=== PATIENT | female | born 1965 | race Caucasian/White ===

== ENCOUNTER 2016-06-12 10:50 | Day surgery (SDC) | payer MEDICAID, OTHER ==
[2016-06-11 11:57] VITALS: BMI 22.7
[~2016-06-12] VITALS: Ht 162.6 cm; Wt 75.0 kg
[2016-06-12] VITALS (9 sets, daily range): BP systolic 102–128; BP diastolic 63–71; PULSE 64–100; RESP 12–18; Ht 162.6 cm; Wt 75.0 kg
[~2016-06-12 10:50] MED LIST: CEFAZOLIN 1 GM INJ ONE; CEFAZOLIN 1 GM/50 ML (PMX) 50 ML IVPB SCH; LACTATED RINGER'S 1,000 ML IV SCH
[2016-06-12] MEDS ORDERED: FENTAnyl 50 MCG/ML VIAL ONE ×2 (10:55→13:23)
[2016-06-12] MEDS ORDERED: GLYCOPYRROLATE 0.4 MG INJ ONE (10:55)
[2016-06-12] MEDS ORDERED: LIDOCAINE 2% (SDV) 5 ML INJ ONE ×2 (10:55→13:22)
[2016-06-12] MEDS ORDERED: PROPOFOL 20 ML ONE ×2 (10:55→13:22)
[2016-06-12] MEDS ORDERED: ROCURONIUM 50 MG INJ ONE (10:55)
[2016-06-12] MEDS ORDERED: NEOSTIGMINE 3 MG/3 ML SYRINGE ONE (10:55)
[2016-06-12] MEDS ORDERED: MIDAZOLAM 1 MG/ML 2 ML INJ ONE ×2 (10:55→13:22)
[2016-06-12] MEDS ORDERED: DEXAMETHASONE 4 MG/ML 1 ML INJ ONE ×3 (10:55→13:54)
[2016-06-12] MEDS ORDERED: ONDANSETRON 4 MG INJ ONE ×2 (10:56→13:54)
[2016-06-12] MEDS ORDERED: SUCCINYLCHOLINE CHLORIDE 100 MG/5 ML SYG IV ONE (10:56)
[2016-06-12] MEDS ORDERED: CEFAZOLIN 1 GM INJ ONE ×2 (10:57→13:34)
[2016-06-12] MEDS ORDERED: MIDAZOLAM 1 MG/ML 2 ML INJ IV PRN (11:00)
[2016-06-12] MEDS ORDERED: MEPERIDINE 25 MG INJ IV PRN ×2 (11:00→14:00)
[2016-06-12] MEDS ORDERED: morphine (1 MG/ML) 10ML SYRINGE IV PRN ×3 (11:00)
[2016-06-12] MEDS ORDERED: LABETALOL HCL 20MG INJ IV PRN (11:00)
[2016-06-12] MEDS ORDERED: DIPHENHYDRAMINE 50 MG INJ IV PRN ×2 (11:00→14:00)
[2016-06-12] MEDS ORDERED: FENTAnyl 50 MCG/ML VIAL IV PRN ×3 (11:00→14:00)
[2016-06-12] MEDS ORDERED: ATROPINE 1 MG/10 ML SYRINGE IV PRN (11:00)
[2016-06-12] MEDS ORDERED: ONDANSETRON 4 MG INJ IV PRN ×2 (11:00→14:00)
[2016-06-12] MEDS ORDERED: HYDROmorphONE (0.2 MG/ML) 10ML SYG IV PRN ×4 (11:00→14:00)
[2016-06-12] MEDS ORDERED: CEFAZOLIN 1 GM/50 ML (PMX) 50 ML IVPB SCH (11:00)
[2016-06-12] MEDS ORDERED: OXYCODONE/ACETAMINOPHEN (5/325) TAB PO PRN ×3 (11:00→14:00)
[2016-06-12] MEDS ORDERED: hydrALAzine 20 MG INJ IV PRN (11:00)
[2016-06-12] MEDS ORDERED: LACTATED RINGER'S 1,000 ML IV SCH (11:00)
[2016-06-12] MEDS ORDERED: EPHEDrine SULFATE 50 MG/5 ML SYG IV PRN (11:00)
[2016-06-12] MEDS ORDERED: LEVO100T87 PO (11:49)
[2016-06-12 12:12] LABS: BASOPHILS % 0.7 % (0.0-2.0); EOSINOPHILS # 0.2 10^3/ul (0.0-0.5); EOSINOPHILS % 4.5 % (0.0-7.0); HEMATOCRIT 39.5 % (37.0-47.0); HEMOGLOBIN 13.3 g/dl (12.0-16.0); LYMPHOCYTES # 1.7 10^3/ul (0.8-2.9); LYMPHOCYTES % 35.1 % (15.0-51.0); MEAN CORPUSCULAR HEMOGLOBIN 31.3 pg (29.0-33.0); MEAN CORPUSCULAR HGB CONC 33.7 g/dl (32.0-37.0); MEAN CORPUSCULAR VOLUME 92.9 fl (82.0-101.0); MEAN PLATELET VOLUME 10.1 fl (7.4-10.4); MONOCYTE # 0.3 10^3/ul (0.3-0.9); MONOCYTES % 7.2 % (0.0-11.0); NEUTROPHIL # 2.5 10^3/ul (1.6-7.5); NEUTROPHILS % 52.5 % (39.0-77.0); PLATELET COUNT 205 10^3/UL (140-440); RED BLOOD COUNT 4.25 10^6/ul (4.20-5.40); RED CELL DISTRIBUTION WIDTH 14.4 % (11.5-14.5); UNCORRECTED WBC 4.8 10^3/ul (4.8-10.8); WHITE BLOOD COUNT 4.8 10^3/ul (4.8-10.8)
[2016-06-12 12:20] LABS: ALBUMIN 4.4 g/dl (3.3-4.9)
[2016-06-12 12:22] LABS: POTASSIUM 4.1 mmol/L (3.5-5.1)
[2016-06-12 12:23] LABS: ALBUMIN/GLOBULIN RATIO 1.37; BILIRUBIN,INDIRECT 0.3 mg/dl (0-1.1); BILIRUBIN,TOTAL 0.3 mg/dl (0.2-1.3); TOTAL PROTEIN 7.6 g/dl (6.1-8.1)
[2016-06-12 12:24] LABS: CONDITION 1
[2016-06-12 12:31] LABS: CALCIUM 9.3 mg/dl (8.4-10.2); CREATININE 0.81 mg/dl (0.44-1.00)
[2016-06-12 12:57] LABS: INR 0.9; PARTIAL THROMBOPLASTIN TIME 27.5 Sec (25.0-35.0); PROTIME 12.1 Sec (12.2-14.2); PT RATIO 0.9
--- NOTE | 2016-06-12 13:04 | HPN ---
Date/Time of Note Date/Time of Note DATE: 06/12/16 TIME: 13:03 Interval H&P Admission Note Pt. seen H&P reviewed: No system changes KISHA DUMONT DPM Jun 12, 2016 13:04
[2016-06-12] MEDS ORDERED: BUPIVACAINE 0.5% (SDV) 30 ML INJ ONE (13:12)
[2016-06-12] MEDS ORDERED: HYDROCODONE/APAP (10/325) TAB PO PRN (13:30)
[2016-06-12] MEDS ORDERED: ONDANSETRON (ODT) 4 MG TAB ODT PRN (13:30)
[2016-06-12] MEDS ORDERED: METOCLOPRAMIDE 10 MG INJ ONE (13:54)
[2016-06-12] MEDS ORDERED: PROCHLORPERAZINE 10 MG INJ IV PRN (14:00)
[2016-06-12] MEDS ORDERED: POLYMYXIN/BACITRACIN 1L IRRIG ONE (14:05)
[2016-06-12] MEDS ORDERED: KETOROLAC 30 MG INJ ONE (14:32)
--- NOTE | 2016-06-12 16:56 | OPR ---
DATE OF OPERATION: 06/12/2016 PREOPERATIVE DIAGNOSIS: Left foot painful bunion deformity with hallux abductovalgus deformity. POSTOPERATIVE DIAGNOSIS: Left foot painful bunion deformity with hallux abductovalgus deformity. ANESTHESIA: General. OPERATION: The patient was brought into the OR and approximately 10 mL of 0.5% plain Marcaine was u tilized circumferentially around the first metatarsophalangeal joint region of the left foot. The a heraclio was prepped and draped in the usual sterile fashion. Tourniquet was applied around the ankle. The foot and ankle was exsanguinated and the tourniquet was inflated to approximately 250 mmHg. Aft er tourniquet inflation, attention was directed at dorsal medial aspect. Utilizing a #15 blade, an approximately 5 cm incision was performed. Sharp and blunt dissection was achieved. Bleeding vesse ls were ligated and care was taken to reflect any nervous tissue in the region. Dissection continue d down to the capsular region where a linear capsulotomy was performed. The capsular tissue was the n retracted both dorsally and plantarly. The bunion deformity was a clear view. Attention was then directed to the medial aspect where a sagittal saw was utilized to remove the bunion deformity in t diony. There was some small exostosis on the dorsal aspect of the first metatarsophalangeal joint. U tilizing a rongeur, the exostoses were removed. Attention was then directed and a classical lateral capsulotomy was performed with a #15 blade. Also, a lengthening procedure, Z lengthening of the ex tensor hallucis longus tendon. Attention was then once again directed to the medial aspect where a modified [employer] osteotomy was performed. The capital fragment was then moved laterally and impacte d onto the remaining stalk. A K-wire was then driven perpendicular to the osteotomy from dorsal to plantar. The area was countersunk and overdrilled and measured. It was determined that a 3.0 #16 s crew would be utilized. The screw was driven from dorsal to plantar and excellent alignment and ahsan roximation and compression is noted. Attention was directed to the medial aspect where utilizing a reciprocating saw and rasp, the area was smoothed clean. The area was once again copiously lavaged with antibiotic solution. There were no encumbrances noted on the joint. The joint moved both dors ally and plantarly in the normal range of motion. The capsular tissue was then remodeled and utiliz ing 2-0 Vicryl suture, a capsulorrhaphy was performed. The subcutaneous tissue was then coapted wit h 3-0 Vicryl suture and the skin with 3-0 nylon suture. There was excellent range of motion of the toe upon closure. The area was dressed with Adaptic, 4 x 4 rolled gauze and Coban. It should be no ginger that a ____[employer] allograft was utilized around the capsular region to reduce the inflam mation and increase healing potential. The tourniquet was released and normoactive hyperemia was no ginger to all the digits of the left foot. This patient tolerated the procedure well and left the room in stable condition. Dictated By: KISHA RIVERA/ZAN Conf#: [id number] DID#: [id number]
--- NOTE | 2016-06-12 17:00 | RADRPT ---
PROCEDURE: XR Foot. CLINICAL INDICATION: Postop TECHNIQUE: Three views of the left foot are available for review. COMPARISON: None available FINDINGS: The patient has undergone hallux valgus correction osteotomy with larger bunionectomy. A cannulated screw transfixes the osteotomy site. Alignment is near anatomic. The remaining osseous structures are intact. Recent surgical changes are noted in the soft tissues. IMPRESSION: 1. Evidence of a recent hallux valgus correction osteotomy at the first MTP joint. RPTAT: AA .Armond Myles MD, MD Date Time Electronically viewed and signed by .Armond Myles MD, MD on 06/12/2016 16:59 .d/
== END 2016-06-12 17:15 | disposition home or self-care (01) ==
LOC: SDS 10:50
PROVIDERS: ATTEND Podiatrist Foot & Ankle Surgery
DX: M21.612 Bunion of left foot (principal); M20.12 Hallux valgus (acquired), left foot; E03.9 Hypothyroidism, unspecified
CPT/HCPCS: 28299; 73630; 80053; 85025; 85610; 85730; 88304; 88311; J0330; J0690; J1100; J1885; J2250; J2405; J2710; J2765; J3010; Z7512; Z7610